=== PATIENT | male | born 1965 | race American Indian/Alaskan Native ===

== ENCOUNTER 2021-01-22 08:30 | Outpatient (CLI) | payer OTHER ==
--- NOTE | 2021-01-22 09:17 | Cat Scan Report ---
CT CHEST WITHOUT CONTRAST INDICATION / CLINICAL INFORMATION: LUNG CANCER. TECHNIQUE: Axial CT images were obtained through the chest without contrast. All CT scans at this location are p erformed using CT dose reduction for ALARA by means of automated exposure control. COMPARISON: None available. FINDINGS: No focal consolidation, pleural effusion or pneumothorax. No nodule or mass is identified. Heart and aorta appear normal noncontrast exam. There is fatty infiltration the liver. Visualized portions of t he upper abdomen appear normal. No mediastinal or hilar adenopathy. Small axillary nodes have no mio nant adenopathy. Mild elevation the right hemidiaphragm best seen on coronal images with minimal lowe r lobe atelectasis. Small granulomas in the spleen IMPRESSION: 1. Minimal atelectasis in the right lower lung with mild elevation the right hemidiaphragm. No discre te nodular masses seen. Signer Name: Scott Fairbanks MD Signed: 01/22/2021 9:13 AM Workstation Name: [id number]
== END 2021-01-22 08:31 | disposition home or self-care (01) ==
LOC: CT 08:30
DX: J98.11 Atelectasis (principal); K76.0 Fatty (change of) liver, not elsewhere classified; Z87.891 Personal history of nicotine dependence
CPT/HCPCS: 71250